=== PATIENT | female | born 1945 | race Caucasian/White ===

== ENCOUNTER → 2023-08-26 07:06 | Outpatient (REF) | payer MEDICARE, SELFPAY | LOC: HWRAD 07:06 | PROVIDERS: ATTENDING PHYSICIAN Internal Medicine | DX: R79.89 Other specified abnormal findings of blood chemistry (principal) | CPT/HCPCS: 76700 ==

== ENCOUNTER → 2023-09-26 07:07 | Outpatient (REF) | payer MEDICARE, SELFPAY ==
[2023-09-26 08:29] LABS: ALT (SGPT) 30 U/L (0-35); AST (SGOT) 37 U/L (14-36)
== END ==
LOC: REG 07:07
PROVIDERS: ATTENDING PHYSICIAN Internal Medicine
DX: R74.8 Abnormal levels of other serum enzymes (principal)
CPT/HCPCS: 36415; 84450; 84460

== ENCOUNTER → 2023-12-02 06:50 | Outpatient (REF) | payer MEDICARE, SELFPAY ==
[2023-12-02 08:21] LABS: AST (SGOT) 47 U/L (14-36)
== END ==
LOC: REG 06:50
PROVIDERS: ATTENDING PHYSICIAN Internal Medicine
DX: R74.01 Elevation of levels of liver transaminase levels (principal)
CPT/HCPCS: 36415; 84450

== ENCOUNTER → 2023-12-23 06:21 | Outpatient (REF) | payer MEDICARE, SELFPAY ==
[2023-12-23 11:53] LABS: ALT (SGPT) 72 U/L (0-35); AST (SGOT) 91 U/L (14-36); Albumin 3.9 g/dl (3.5-5.0); Alkaline Phosphatase 82 U/L (38-126); Blood Urea Nitrogen 14 mg/dl (7-17); Carbon Dioxide 29 mmol/L (22-30); Chloride 103 mmol/L (98-107); Glucose 82 mg/dl (70-99); Iron 106 ug/dl (37-170); Sodium 137 mmol/L (135-145); Total Bilirubin 0.5 mg/dl (0.2-1.3); Total Protein 6.9 g/dl (6.3-8.2); eGFR > 60.00
[2023-12-23 12:02] LABS: Percent Saturation 28 % (20-50); Total Iron Binding Capacity 369 ug/dl (265-497)
[2023-12-23 12:18] LABS: IgA 187 mg/dl (70-400)
[2023-12-23 13:53] LABS: Free T3 2.31 pg/ml (2.77-5.27); Free T4 1.01 ng/dl (0.78-2.19)
[2023-12-23 14:07] LABS: TSH 4.86 uIU/ml (0.47-4.68)
[2023-12-23 14:10] LABS: Ferritin 19.7 ng/ml (11.1-264.0)
[2023-12-25 14:24] LABS: tTG IgA Antibody 12.3 EU/ml (0-19); tTG IgG Antibody 16.2 EU/ml (0-19)
[2023-12-26 01:40] LABS: Endomysial IgA Antibody Titer <1:10 (<1:10)
[2023-12-26 03:14] LABS: F-Actin Antibody IgG 9 Units (0-19)
[2023-12-26 08:34] LABS: ANA, IgG Reflex to HEp-2 Detected (None Detected)
== END ==
LOC: HWWDC 06:21
PROVIDERS: ATTENDING PHYSICIAN Surgery; FAMILY PHYSICIAN Internal Medicine; REFERRING PHYSICIAN Internal Medicine Gastroenterology
DX: Z12.31 Encounter for screening mammogram for malignant neoplasm of breast (principal); E03.9 Hypothyroidism, unspecified; R74.01 Elevation of levels of liver transaminase levels; R74.02 Elevation of levels of lactic acid dehydrogenase [LDH]
CPT/HCPCS: 36415; 80053; 82103; 82104; 82728; 82784; 83516; 83540; 83550; 84439; 84443; 84481; 86015; 86038; 86231; 86376

== ENCOUNTER → 2024-01-07 09:16 | Outpatient (REF) | payer MEDICARE, SELFPAY | LOC: HWRAD 09:16 | PROVIDERS: ATTENDING PHYSICIAN Internal Medicine Gastroenterology; FAMILY PHYSICIAN Internal Medicine | DX: R74.01 Elevation of levels of liver transaminase levels (principal); R74.02 Elevation of levels of lactic acid dehydrogenase [LDH] | CPT/HCPCS: 74160; Q9967 ==

== ENCOUNTER → 2024-01-10 07:19 | Outpatient (REF) | payer MEDICARE, SELFPAY ==
[2024-01-10 09:37] LABS: % Basophils 1.6 % (0-2); % Eosinophils 7.5 % (0-6); % Immature Granulocytes 0.2 % (0-0.5); % Lymphocytes 31.9 % (20.5-51.1); % Monocytes 13.3 % (1.7-9.3); % Neutrophils 45.5 % (42.2-75.2); Absolute Basophils 0.1 10^3/uL (0-0.2); Absolute Eosinophils 0.3 10^3/uL (0-0.7); Absolute Lymphocytes 1.4 10^3/uL (1.2-3.4); Absolute Monocytes 0.6 10^3/uL (0.1-0.6); Absolute Neutrophils 1.9 10^3/uL (1.4-6.5); Hematocrit 41.4 % (37.0-47.0); Hemoglobin 13.4 g/dL (12.0-16.0); Mean Corp Hgb Conc. 32.4 g/dL (33.0-37.0); Mean Corpuscular Hgb 30.7 pg (27.0-31.0); Mean Platelet Volume 9.8 fL (7.4-10.4); Nucleated Red Blood Cells % 0 %; Platelet Count 242 10^3/uL (130-400); Red Blood Cell Count 4.36 10^6/uL (4.20-5.40); Red Cell Dist. Width 13.2 % (11.5-14.5); White Blood Cell Count 4.3 10^3/uL (4.8-10.8)
[2024-01-10 09:49] LABS: ALT (SGPT) 53 U/L (0-35); AST (SGOT) 53 U/L (14-36); Albumin 3.9 g/dl (3.5-5.0); Alkaline Phosphatase 82 U/L (38-126); Blood Urea Nitrogen 10 mg/dl (7-17); Calcium 9.2 mg/dl (8.4-10.2); Carbon Dioxide 30 mmol/L (22-30); Chloride 104 mmol/L (98-107); Glucose 87 mg/dl (70-99); Potassium 4.4 mmol/L (3.5-5.1); Sodium 138 mmol/L (135-145); Total Bilirubin 0.6 mg/dl (0.2-1.3); eGFR > 60.00
[2024-01-10 09:50] LABS: PT 13.1 Sec (11.4-14.6)
== END ==
LOC: HWLAB 07:19
PROVIDERS: ATTENDING PHYSICIAN Internal Medicine Gastroenterology; FAMILY PHYSICIAN Internal Medicine
DX: R74.01 Elevation of levels of liver transaminase levels (principal); R74.02 Elevation of levels of lactic acid dehydrogenase [LDH]; K76.9 Liver disease, unspecified
CPT/HCPCS: 36415; 80053; 85025; 85610

== ENCOUNTER → 2024-03-03 06:34 | Outpatient (REF) | payer MEDICARE, SELFPAY ==
[2024-03-03 07:39] LABS: ALT (SGPT) 34 U/L (0-35); AST (SGOT) 47 U/L (14-36); Albumin 3.8 g/dl (3.5-5.0); Alkaline Phosphatase 85 U/L (38-126); Blood Urea Nitrogen 14 mg/dl (7-17); Calcium 9.2 mg/dl (8.4-10.2); Carbon Dioxide 27 mmol/L (22-30); Chloride 103 mmol/L (98-107); Creatine Phosphokinase 37 U/L (30-135); Glucose 83 mg/dl (70-99); Potassium 4.5 mmol/L (3.5-5.1); Sodium 136 mmol/L (135-145); Total Bilirubin 0.5 mg/dl (0.2-1.3); Total Protein 6.5 g/dl (6.3-8.2); eGFR > 60.00
[2024-03-03 07:45] LABS: IgA 188 mg/dl (70-400); IgG 1207 mg/dl (700-1600); IgM 129 mg/dl (40-230)
[2024-03-03 07:53] LABS: Free T3 2.62 pg/ml (2.77-5.27); Free T4 1.23 ng/dl (0.78-2.19)
[2024-03-03 08:07] LABS: TSH 0.27 uIU/ml (0.47-4.68)
[2024-03-03 08:24] LABS: % Basophils 1.8 % (0-2); % Eosinophils 9.6 % (0-6); % Immature Granulocytes 0.4 % (0-0.5); % Lymphocytes 28.5 % (20.5-51.1); % Monocytes 13.2 % (1.7-9.3); % Neutrophils 46.5 % (42.2-75.2); Absolute Basophils 0.1 10^3/uL (0-0.2); Absolute Eosinophils 0.5 10^3/uL (0-0.7); Absolute Lymphocytes 1.4 10^3/uL (1.2-3.4); Absolute Monocytes 0.7 10^3/uL (0.1-0.6); Absolute Neutrophils 2.3 10^3/uL (1.4-6.5); Hematocrit 40.5 % (37.0-47.0); Hemoglobin 13.3 g/dL (12.0-16.0); Mean Corp Hgb Conc. 32.8 g/dL (33.0-37.0); Mean Corpuscular Hgb 31.2 pg (27.0-31.0); Mean Corpuscular Volume 95.1 fL (81.0-99.0); Mean Platelet Volume 10.1 fL (7.4-10.4); Nucleated Red Blood Cells % 0 %; Platelet Count 241 10^3/uL (130-400); Red Blood Cell Count 4.26 10^6/uL (4.20-5.40); Red Cell Dist. Width 12.7 % (11.5-14.5)
[2024-03-03 08:24] LABS: Hepatitis B Core Ab, Total Negative (Negative)
[2024-03-03 08:37] LABS: Hepatitis A Antibody, Total Negative (Negative)
[2024-03-03 08:40] LABS: INR 1.02; PT 13.2 Sec (11.4-14.6)
[2024-03-05 00:55] LABS: Ceruloplasmin 27 mg/dL (16-45)
[2024-03-05 01:08] LABS: Aldolase 3.3 U/L (1.2-7.6)
[2024-03-05 01:25] LABS: ANA, IgG Reflex to HEp-2 Detected (None Detected)
[2024-03-06 00:49] LABS: ANA, HEp-2, IgG <1:80 (<1:80)
== END ==
LOC: REG 06:34
PROVIDERS: ATTENDING PHYSICIAN Internal Medicine Transplant Hepatology; FAMILY PHYSICIAN Internal Medicine
DX: R79.89 Other specified abnormal findings of blood chemistry (principal); Z11.59 Encounter for screening for other viral diseases; R94.5 Abnormal results of liver function studies; E03.9 Hypothyroidism, unspecified
CPT/HCPCS: 36415; 80053; 82085; 82390; 82550; 82784; 84439; 84443; 84481; 85025; 85610; 86038; 86039; 86381; 86704; 86708

== ENCOUNTER → 2024-03-11 07:46 | Outpatient (REF) | payer MEDICARE, SELFPAY | LOC: DHCBC/DCA 07:46 | PROVIDERS: ATTENDING PHYSICIAN Internal Medicine Cardiovascular Disease; FAMILY PHYSICIAN Internal Medicine | DX: Z01.810 Encounter for preprocedural cardiovascular examination (principal) | CPT/HCPCS: 78452; 93017; A9500; J2785 ==

== ENCOUNTER → 2024-05-01 07:43 | Outpatient (REF) | payer MEDICARE, BC, SELFPAY ==
[2024-05-01 09:56] LABS: Free T3 2.63 pg/ml (2.77-5.27)
[2024-05-01 10:09] LABS: TSH 2.36 uIU/ml (0.47-4.68)
[2024-05-01 10:21] LABS: Free T4 1.13 ng/dl (0.78-2.19)
== END ==
LOC: HWLAB 07:43
PROVIDERS: ATTENDING PHYSICIAN Internal Medicine
DX: E03.9 Hypothyroidism, unspecified (principal)
CPT/HCPCS: 36415; 84439; 84443; 84481

== ENCOUNTER → 2024-06-22 08:49 | Outpatient (REF) | payer MEDICARE, BC, SELFPAY | LOC: WDC 08:49 | PROVIDERS: ATTENDING PHYSICIAN Surgery | DX: R92.2 Inconclusive mammogram (principal); Z91.89 Other specified personal risk factors, not elsewhere classified | CPT/HCPCS: 76641 ==

== ENCOUNTER → 2024-06-26 11:25 | Outpatient (REF) | payer MEDICARE, BC, SELFPAY ==
[2024-06-26 14:00] LABS: Glycohemoglobin (HgbA1c) 5.3 % (4.0-5.6)
== END ==
LOC: OLABPV 11:25
PROVIDERS: ATTENDING PHYSICIAN Orthopaedic Surgery Adult Reconstructive Orthopaedic Surgery
DX: R73.09 Other abnormal glucose (principal)
CPT/HCPCS: 36415; 83036

== ENCOUNTER → 2024-07-23 10:53 | Outpatient (REF) | payer MEDICARE, BC, SELFPAY | LOC: HWRAD 10:53 | PROVIDERS: ATTENDING PHYSICIAN Internal Medicine | DX: J47.9 Bronchiectasis, uncomplicated (principal); R06.2 Wheezing | CPT/HCPCS: 71046 ==

== ENCOUNTER → 2024-08-18 10:46 | Outpatient (REF) | payer MEDICARE, BC, SELFPAY ==
[2024-08-18 12:09] LABS: Free T3 2.59 pg/ml (2.77-5.27); Free T4 1.19 ng/dl (0.78-2.19)
[2024-08-18 12:22] LABS: TSH 2.76 uIU/ml (0.47-4.68)
== END ==
LOC: OLABPV 10:46
PROVIDERS: ATTENDING PHYSICIAN Internal Medicine
DX: E03.9 Hypothyroidism, unspecified (principal)
CPT/HCPCS: 36415; 84439; 84443; 84481

== ENCOUNTER → 2025-01-27 08:47 | Outpatient (REF) | payer MEDICARE, BC, SELFPAY | LOC: HWWDC 08:47 | PROVIDERS: ATTENDING PHYSICIAN Surgery; FAMILY PHYSICIAN Internal Medicine | DX: Z12.31 Encounter for screening mammogram for malignant neoplasm of breast (principal) | CPT/HCPCS: 77063; 77067 ==

== ENCOUNTER → 2025-03-31 08:57 | Outpatient (REF) | payer MEDICARE, BC, SELFPAY ==
[2025-03-31 14:09] LABS: Free T3 2.58 pg/ml (2.77-5.27)
[2025-03-31 14:23] LABS: TSH 0.97 uIU/ml (0.47-4.68)
== END ==
LOC: HWLAB 08:57
PROVIDERS: ATTENDING PHYSICIAN Internal Medicine
DX: R53.83 Other fatigue (principal); E03.9 Hypothyroidism, unspecified
CPT/HCPCS: 36415; 84439; 84443; 84481

== ENCOUNTER → 2025-05-18 10:41 | Outpatient (REF) | payer MEDICARE, BC, SELFPAY ==
[2025-05-18 12:55] LABS: Hematocrit 36.1 % (37.0-47.0); Hemoglobin 10.8 g/dL (12.0-16.0); Mean Corp Hgb Conc. 29.9 g/dL (33.0-37.0); Mean Corpuscular Volume 82.0 fL (81.0-99.0); Nucleated Red Blood Cells % 0 %; Platelet Count 259 10^3/uL (130-400); Red Cell Dist. Width 19.5 % (11.5-14.5)
[2025-05-18 13:08] LABS: ALT (SGPT) 34 U/L (0-35); AST (SGOT) 38 U/L (14-36); Albumin 4.1 g/dl (3.5-5.0); Alkaline Phosphatase 77 U/L (38-126); Blood Urea Nitrogen 13 mg/dl (7-17); Carbon Dioxide 29 mmol/L (22-30); Chloride 102 mmol/L (98-107); Glucose 91 mg/dl (70-99); Sodium 133 mmol/L (135-145); Total Protein 7.5 g/dl (6.3-8.2); eGFR > 60.00
[2025-05-18 13:17] LABS: Calcium 9.0 mg/dl (8.4-10.2); Potassium 4.0 mmol/L (3.5-5.1)
== END ==
LOC: HWLAB 10:41
PROVIDERS: ATTENDING PHYSICIAN Internal Medicine
DX: L50.9 Urticaria, unspecified (principal); R74.01 Elevation of levels of liver transaminase levels
CPT/HCPCS: 36415; 80053; 85025

== ENCOUNTER → 2025-05-26 09:17 | Outpatient (REF) | payer MEDICARE, BC, SELFPAY ==
[2025-05-26 11:55] LABS: Reticulocyte Count 1.2 % (0.4-2.8)
[2025-05-26 12:09] LABS: AST (SGOT) 36 U/L (14-36); Iron 39 ug/dl (37-170); Sodium 136 mmol/L (135-145)
[2025-05-26 12:18] LABS: Total Iron Binding Capacity 413 ug/dl (265-497)
[2025-05-26 12:47] LABS: Ferritin 7.2 ng/ml (11.1-264.0)
== END ==
LOC: HWLAB 09:17
PROVIDERS: ATTENDING PHYSICIAN Internal Medicine
DX: D50.9 Iron deficiency anemia, unspecified (principal); Z80.0 Family history of malignant neoplasm of digestive organs; E87.1 Hypo-osmolality and hyponatremia; R74.01 Elevation of levels of liver transaminase levels
CPT/HCPCS: 36415; 82728; 83540; 83550; 84295; 84450; 85045